=== PATIENT | female | born 1935 | race Caucasian/White ===

== ENCOUNTER 2016-08-19 11:48 | Inpatient (IN) | payer MEDICARE, BC, MEDICAID ==
[2016-08-19] MEDS ORDERED: ALBUTEROL NEB SOL 2.5MG/3ML 1 VIAL SOL NEB PRN (16:33)
[2016-08-19] MEDS ORDERED: WARFARIN SODIUM 2.5 MG TAB PO SCH (18:00)
[2016-08-19] MEDS ORDERED: [UNRECOGNIZED DRUG - OTHER] PO PRN (20:08)
[2016-08-19] MEDS ORDERED: SIMETHICONE 40 MG/0.6 ML SUS PO PRN (20:08)
[2016-08-19] MEDS ORDERED: ONDANSETRON HCL 4 MG TAB PO PRN (20:08)
[2016-08-19] MEDS ORDERED: ACETAMINOPHEN 325 MG PO PRN (20:08)
[2016-08-19] MEDS ORDERED: ATORVASTATIN 10 MG TAB PO SCH (21:00)
[2016-08-19] MEDS: METOPROLOL TARTRATE 25 MG TAB PO SCH (21:12)
[2016-08-20] MEDS: MULTIVITAMIN2 1 EA TAB PO SCH ×2 (02:14→20:46)
[2016-08-20] MEDS: DIGOXIN 0.125 MG TAB PO SCH (05:48)
[2016-08-20] MEDS ORDERED: [UNRECOGNIZED DRUG - OTHER] PO SCH (09:00)
[2016-08-20] MEDS ORDERED: ATORVASTATIN 10 MG TAB PO SCH (09:00)
[2016-08-20] MEDS ORDERED: LISINOPRIL 5 MG TAB PO SCH (09:00)
[2016-08-20] MEDS ORDERED: FAMOTIDINE 20 MG TAB PO SCH (09:00)
[2016-08-20] MEDS: LISINOPRIL 20 MG TAB PO SCH (10:05)
[2016-08-20] MEDS: METOPROLOL TARTRATE 25 MG TAB PO SCH ×2 (10:05→20:46)
[2016-08-20] MEDS: FAMOTIDINE 20 MG TAB PO SCH ×2 (10:06→20:46)
[2016-08-20] MEDS: WARFARIN SODIUM 2.5 MG TAB PO SCH (18:29)
[2016-08-20] MEDS: ATORVASTATIN 10 MG TAB PO SCH (20:45)
[2016-08-20] MEDS: [UNRECOGNIZED DRUG - OTHER] PO SCH (20:46)
[2016-08-20] MEDS ORDERED: [UNRECOGNIZED DRUG - OTHER] PO SCH (21:00)
[2016-08-21] MEDS: DIGOXIN 0.125 MG TAB PO SCH (05:48)
[2016-08-21] MEDS: LISINOPRIL 20 MG TAB PO SCH (08:46)
[2016-08-21] MEDS: METOPROLOL TARTRATE 25 MG TAB PO SCH ×2 (08:47→20:34)
[2016-08-21] MEDS: FAMOTIDINE 20 MG TAB PO SCH ×2 (08:48→17:29)
[2016-08-21] MEDS: WARFARIN SODIUM 2.5 MG TAB PO SCH (17:29)
[2016-08-21] MEDS: MULTIVITAMIN2 1 EA TAB PO SCH ×2 (17:29→20:34)
[2016-08-21] MEDS: ATORVASTATIN 10 MG TAB PO SCH (20:33)
[2016-08-21] MEDS: [UNRECOGNIZED DRUG - OTHER] PO SCH (20:35)
[2016-08-22] MEDS: DIGOXIN 0.125 MG TAB PO SCH (04:23)
[2016-08-22] MEDS: MOI STIR PO PRN (05:30)
[2016-08-22] MEDS: FAMOTIDINE 20 MG TAB PO SCH ×2 (06:31→17:34)
[2016-08-22] MEDS: METOPROLOL TARTRATE 25 MG TAB PO SCH ×2 (08:38→21:01)
[2016-08-22] MEDS: LISINOPRIL 20 MG TAB PO SCH (08:40)
[2016-08-22] MEDS ORDERED: ONDANSETRON HCL 4 MG TAB PO PRN (11:01)
[2016-08-22] MEDS: WARFARIN SODIUM 2.5 MG TAB PO SCH (17:39)
[2016-08-22] MEDS: ATORVASTATIN 10 MG TAB PO SCH (21:01)
[2016-08-22] MEDS: [UNRECOGNIZED DRUG - OTHER] PO SCH (21:02)
[2016-08-22] MEDS: MULTIVITAMIN2 1 EA TAB PO SCH (21:02)
[2016-08-23] MEDS: DIGOXIN 0.125 MG TAB PO SCH (05:07)
[2016-08-23] MEDS: FAMOTIDINE 20 MG TAB PO SCH ×2 (06:24→17:45)
[2016-08-23] MEDS: LISINOPRIL 20 MG TAB PO SCH (08:33)
[2016-08-23] MEDS: METOPROLOL TARTRATE 25 MG TAB PO SCH ×2 (08:33→20:59)
[2016-08-23] MEDS ORDERED: WARFARIN SODIUM 1 MG TAB PO ONE (18:00)
[2016-08-23] MEDS ORDERED: WARFARIN SODIUM 3 MG TAB PO ONE (18:00)
[2016-08-23] MEDS ORDERED: WARFARIN SODIUM 3 MG TAB PO SCH (18:00)
[2016-08-23] MEDS: ATORVASTATIN 10 MG TAB PO SCH (20:59)
[2016-08-23] MEDS: MULTIVITAMIN2 1 EA TAB PO SCH (21:00)
[2016-08-23] MEDS: [UNRECOGNIZED DRUG - OTHER] PO SCH (21:00)
[2016-08-23] MEDS ORDERED: HYDRALAZINE HYDROCHLORIDE 10 MG TAB PO ONE (23:00)
[2016-08-24] MEDS: DIGOXIN 0.125 MG TAB PO SCH (06:00)
[2016-08-24] MEDS: FAMOTIDINE 20 MG TAB PO SCH ×2 (06:01→17:47)
[2016-08-24] MEDS: LISINOPRIL 20 MG TAB PO SCH (08:21)
[2016-08-24] MEDS: METOPROLOL TARTRATE 25 MG TAB PO SCH ×2 (08:21→20:38)
[2016-08-24] MEDS: AMLODIPINE 5 MG TAB PO SCH (08:22)
[2016-08-24] MEDS: WARFARIN SODIUM 2.5 MG TAB PO SCH (17:47)
[2016-08-24] MEDS: ATORVASTATIN 10 MG TAB PO SCH (20:38)
[2016-08-24] MEDS: [UNRECOGNIZED DRUG - OTHER] PO SCH (20:38)
[2016-08-24] MEDS: MULTIVITAMIN2 1 EA TAB PO SCH (20:39)
[2016-08-25] MEDS: DIGOXIN 0.125 MG TAB PO SCH (05:41)
[2016-08-25] MEDS: FAMOTIDINE 20 MG TAB PO SCH ×2 (06:19→17:42)
[2016-08-25] MEDS: METOPROLOL TARTRATE 25 MG TAB PO SCH ×2 (08:31→20:36)
[2016-08-25] MEDS: LISINOPRIL 20 MG TAB PO SCH (08:32)
[2016-08-25] MEDS: AMLODIPINE 5 MG TAB PO SCH (08:33)
[2016-08-25] MEDS: WARFARIN SODIUM 2.5 MG TAB PO SCH (17:42)
[2016-08-25] MEDS: ATORVASTATIN 10 MG TAB PO SCH (20:36)
[2016-08-25] MEDS: [UNRECOGNIZED DRUG - OTHER] PO SCH (20:37)
[2016-08-25] MEDS: MULTIVITAMIN2 1 EA TAB PO SCH (20:38)
[2016-08-26] MEDS: FAMOTIDINE 20 MG TAB PO SCH ×2 (06:38→17:38)
[2016-08-26] MEDS: AMLODIPINE 5 MG TAB PO SCH (08:55)
[2016-08-26] MEDS: LISINOPRIL 20 MG TAB PO SCH (08:55)
[2016-08-26] MEDS: METOPROLOL TARTRATE 25 MG TAB PO SCH ×2 (08:55→20:56)
[2016-08-26] MEDS: WARFARIN SODIUM 2.5 MG TAB PO SCH (17:38)
[2016-08-26] MEDS: ATORVASTATIN 10 MG TAB PO SCH (20:56)
[2016-08-26] MEDS: MULTIVITAMIN2 1 EA TAB PO SCH (20:57)
[2016-08-26] MEDS: MOI STIR PO PRN (20:57)
[2016-08-26] MEDS: [UNRECOGNIZED DRUG - OTHER] PO SCH (21:00)
[2016-08-27] MEDS: FAMOTIDINE 20 MG TAB PO SCH ×2 (07:20→17:40)
[2016-08-27] MEDS: METOPROLOL TARTRATE 25 MG TAB PO SCH ×2 (08:14→20:46)
[2016-08-27] MEDS: AMLODIPINE 5 MG TAB PO SCH (08:14)
[2016-08-27] MEDS: LISINOPRIL 20 MG TAB PO SCH (08:14)
[2016-08-27] MEDS: WARFARIN SODIUM 2.5 MG TAB PO SCH (17:40)
[2016-08-27] MEDS: MOI STIR PO PRN (20:45)
[2016-08-27] MEDS: ATORVASTATIN 10 MG TAB PO SCH (20:45)
[2016-08-27] MEDS: [UNRECOGNIZED DRUG - OTHER] PO SCH (20:46)
[2016-08-27] MEDS: MULTIVITAMIN2 1 EA TAB PO SCH (20:46)
[2016-08-28] MEDS: MOI STIR PO PRN (02:32)
[2016-08-28] MEDS: FAMOTIDINE 20 MG TAB PO SCH ×2 (06:45→17:32)
[2016-08-28 07:22] LABS: CALCIUM 8.4 mg/dl (8.5-10.1); POTASSIUM 4.3 mMol/L (3.5-5.1)
[2016-08-28] MEDS: METOPROLOL TARTRATE 25 MG TAB PO SCH ×2 (08:03→21:14)
[2016-08-28] MEDS: LISINOPRIL 20 MG TAB PO SCH (08:03)
[2016-08-28] MEDS: AMLODIPINE 5 MG TAB PO SCH (08:04)
[2016-08-28] MEDS: WARFARIN SODIUM 2.5 MG TAB PO SCH (17:32)
[2016-08-28] MEDS: ATORVASTATIN 10 MG TAB PO SCH (21:14)
[2016-08-28] MEDS: [UNRECOGNIZED DRUG - OTHER] PO SCH (21:15)
[2016-08-28] MEDS: MULTIVITAMIN2 1 EA TAB PO SCH (21:16)
[2016-08-29] MEDS: ACETAMINOPHEN 325 MG PO PRN (01:43)
[2016-08-29] MEDS: FAMOTIDINE 20 MG TAB PO SCH ×2 (07:18→18:13)
[2016-08-29] MEDS: LISINOPRIL 20 MG TAB PO SCH (08:36)
[2016-08-29] MEDS: METOPROLOL TARTRATE 25 MG TAB PO SCH ×2 (08:36→22:13)
[2016-08-29] MEDS: AMLODIPINE 5 MG TAB PO SCH (08:37)
[2016-08-29] MEDS: WARFARIN SODIUM 2.5 MG TAB PO SCH (18:14)
[2016-08-29] MEDS: ATORVASTATIN 10 MG TAB PO SCH (22:13)
[2016-08-29] MEDS: MULTIVITAMIN2 1 EA TAB PO SCH (22:14)
[2016-08-29] MEDS: [UNRECOGNIZED DRUG - OTHER] PO SCH (22:14)
[2016-08-30] MEDS: FAMOTIDINE 20 MG TAB PO SCH ×2 (07:15→17:18)
[2016-08-30] MEDS: AMLODIPINE 5 MG TAB PO SCH (08:29)
[2016-08-30] MEDS: METOPROLOL TARTRATE 25 MG TAB PO SCH ×2 (08:29→20:47)
[2016-08-30] MEDS: LISINOPRIL 20 MG TAB PO SCH (08:30)
[2016-08-30] MEDS: WARFARIN SODIUM 2.5 MG TAB PO SCH (18:02)
[2016-08-30] MEDS: [UNRECOGNIZED DRUG - OTHER] PO SCH (20:47)
[2016-08-30] MEDS: ATORVASTATIN 10 MG TAB PO SCH (20:49)
[2016-08-30] MEDS: MULTIVITAMIN2 1 EA TAB PO SCH (20:49)
[2016-08-31] MEDS: FAMOTIDINE 20 MG TAB PO SCH ×2 (06:11→16:51)
[2016-08-31] MEDS: ACETAMINOPHEN 325 MG PO PRN (06:11)
[2016-08-31] MEDS: LISINOPRIL 20 MG TAB PO SCH (09:40)
[2016-08-31] MEDS: METOPROLOL TARTRATE 25 MG TAB PO SCH ×2 (09:40→21:39)
[2016-08-31] MEDS: AMLODIPINE 5 MG TAB PO SCH (09:40)
[2016-08-31] MEDS: WARFARIN SODIUM 2.5 MG TAB PO SCH (18:47)
[2016-08-31] MEDS: ATORVASTATIN 10 MG TAB PO SCH (21:39)
[2016-08-31] MEDS: [UNRECOGNIZED DRUG - OTHER] PO SCH (21:41)
[2016-08-31] MEDS: MULTIVITAMIN2 1 EA TAB PO SCH (21:42)
[2016-09-01] MEDS: FAMOTIDINE 20 MG TAB PO SCH ×2 (06:19→17:15)
[2016-09-01] MEDS: LISINOPRIL 20 MG TAB PO SCH (08:06)
[2016-09-01] MEDS: METOPROLOL TARTRATE 25 MG TAB PO SCH ×2 (08:06→20:16)
[2016-09-01] MEDS: AMLODIPINE 5 MG TAB PO SCH (08:06)
[2016-09-01] MEDS: WARFARIN SODIUM 2.5 MG TAB PO SCH (17:16)
[2016-09-01] MEDS: [UNRECOGNIZED DRUG - OTHER] PO SCH (20:16)
[2016-09-01] MEDS: ATORVASTATIN 10 MG TAB PO SCH (20:16)
[2016-09-01] MEDS: MULTIVITAMIN2 1 EA TAB PO SCH (20:17)
[2016-09-02] MEDS: FAMOTIDINE 20 MG TAB PO SCH ×2 (06:34→17:39)
[2016-09-02] MEDS: METOPROLOL TARTRATE 25 MG TAB PO SCH ×2 (10:23→20:19)
[2016-09-02] MEDS: AMLODIPINE 5 MG TAB PO SCH (10:23)
[2016-09-02] MEDS: LISINOPRIL 20 MG TAB PO SCH (10:23)
[2016-09-02] MEDS: WARFARIN SODIUM 2.5 MG TAB PO SCH (17:40)
[2016-09-02] MEDS: [UNRECOGNIZED DRUG - OTHER] PO SCH (20:17)
[2016-09-02] MEDS: ATORVASTATIN 10 MG TAB PO SCH (20:20)
[2016-09-02] MEDS: MULTIVITAMIN2 1 EA TAB PO SCH (20:20)
[2016-09-03] MEDS: ACETAMINOPHEN 325 MG PO PRN (01:39)
[2016-09-03] MEDS: FAMOTIDINE 20 MG TAB PO SCH ×2 (06:26→17:39)
[2016-09-03] MEDS: METOPROLOL TARTRATE 25 MG TAB PO SCH ×2 (08:23→21:08)
[2016-09-03] MEDS: AMLODIPINE 5 MG TAB PO SCH (08:23)
[2016-09-03] MEDS: LISINOPRIL 20 MG TAB PO SCH (08:23)
[2016-09-03] MEDS: WARFARIN SODIUM 2.5 MG TAB PO SCH (17:39)
[2016-09-03] MEDS: MULTIVITAMIN2 1 EA TAB PO SCH (21:08)
[2016-09-03] MEDS: [UNRECOGNIZED DRUG - OTHER] PO SCH (21:09)
[2016-09-03] MEDS: ATORVASTATIN 10 MG TAB PO SCH (21:09)
[2016-09-03] MEDS: MOI STIR PO PRN (23:00)
[2016-09-04] MEDS: FAMOTIDINE 20 MG TAB PO SCH ×2 (06:38→17:04)
[2016-09-04] MEDS: METOPROLOL TARTRATE 25 MG TAB PO SCH ×2 (08:12→20:50)
[2016-09-04] MEDS: LISINOPRIL 20 MG TAB PO SCH (08:14)
[2016-09-04] MEDS: AMLODIPINE 5 MG TAB PO SCH (08:14)
[2016-09-04] MEDS: WARFARIN SODIUM 2.5 MG TAB PO SCH (17:02)
[2016-09-04] MEDS: [UNRECOGNIZED DRUG - OTHER] PO SCH (20:50)
[2016-09-04] MEDS: MULTIVITAMIN2 1 EA TAB PO SCH (20:51)
[2016-09-04] MEDS: ATORVASTATIN 10 MG TAB PO SCH (20:52)
[2016-09-05] MEDS: ACETAMINOPHEN 325 MG PO PRN (02:19)
[2016-09-05] MEDS: FAMOTIDINE 20 MG TAB PO SCH ×2 (06:38→18:10)
[2016-09-05] MEDS: METOPROLOL TARTRATE 25 MG TAB PO SCH ×2 (09:51→20:43)
[2016-09-05] MEDS: AMLODIPINE 5 MG TAB PO SCH (09:51)
[2016-09-05] MEDS: LISINOPRIL 20 MG TAB PO SCH (09:52)
[2016-09-05] MEDS ORDERED: WARFARIN SODIUM 5 MG TAB PO ONE (18:00)
[2016-09-05] MEDS: ATORVASTATIN 10 MG TAB PO SCH (20:43)
[2016-09-05] MEDS: MULTIVITAMIN2 1 EA TAB PO SCH (20:43)
[2016-09-05] MEDS: [UNRECOGNIZED DRUG - OTHER] PO SCH (20:43)
[2016-09-06] MEDS: FAMOTIDINE 20 MG TAB PO SCH ×2 (06:45→19:34)
[2016-09-06] MEDS: METOPROLOL TARTRATE 25 MG TAB PO SCH ×2 (09:12→20:15)
[2016-09-06] MEDS: AMLODIPINE 5 MG TAB PO SCH (09:13)
[2016-09-06] MEDS: LISINOPRIL 20 MG TAB PO SCH (09:13)
[2016-09-06] MEDS: WARFARIN SODIUM 2.5 MG TAB PO SCH (19:35)
[2016-09-06] MEDS: ATORVASTATIN 10 MG TAB PO SCH (20:14)
[2016-09-06] MEDS: MULTIVITAMIN2 1 EA TAB PO SCH (20:15)
[2016-09-06] MEDS: [UNRECOGNIZED DRUG - OTHER] PO SCH (20:15)
[2016-09-07] MEDS: FAMOTIDINE 20 MG TAB PO SCH ×2 (06:29→18:25)
[2016-09-07] MEDS: METOPROLOL TARTRATE 25 MG TAB PO SCH ×2 (08:55→20:02)
[2016-09-07] MEDS: AMLODIPINE 5 MG TAB PO SCH (08:56)
[2016-09-07] MEDS: LISINOPRIL 20 MG TAB PO SCH (08:56)
[2016-09-07] MEDS: WARFARIN SODIUM 2.5 MG TAB PO SCH (18:25)
[2016-09-07] MEDS: MULTIVITAMIN2 1 EA TAB PO SCH (20:02)
[2016-09-07] MEDS: ATORVASTATIN 10 MG TAB PO SCH (20:02)
[2016-09-07] MEDS: [UNRECOGNIZED DRUG - OTHER] PO SCH (20:02)
[2016-09-08] MEDS: FAMOTIDINE 20 MG TAB PO SCH ×2 (06:43→17:19)
[2016-09-08] MEDS: METOPROLOL TARTRATE 25 MG TAB PO SCH ×2 (08:24→20:30)
[2016-09-08] MEDS: AMLODIPINE 5 MG TAB PO SCH (08:24)
[2016-09-08] MEDS: LISINOPRIL 20 MG TAB PO SCH (08:24)
[2016-09-08] MEDS: WARFARIN SODIUM 2.5 MG TAB PO SCH (17:22)
[2016-09-08] MEDS ORDERED: WARFARIN SODIUM 3 MG TAB PO SCH (18:00)
[2016-09-08] MEDS: MULTIVITAMIN2 1 EA TAB PO SCH (20:30)
[2016-09-08] MEDS: ATORVASTATIN 10 MG TAB PO SCH (20:31)
[2016-09-08] MEDS: MOI STIR PO PRN (20:32)
[2016-09-08] MEDS: [UNRECOGNIZED DRUG - OTHER] PO SCH (20:32)
[2016-09-09] MEDS: FAMOTIDINE 20 MG TAB PO SCH ×2 (06:33→17:15)
[2016-09-09] MEDS: METOPROLOL TARTRATE 25 MG TAB PO SCH ×2 (08:30→20:36)
[2016-09-09] MEDS: AMLODIPINE 5 MG TAB PO SCH (08:32)
[2016-09-09] MEDS: LISINOPRIL 20 MG TAB PO SCH (08:32)
[2016-09-09] MEDS: WARFARIN SODIUM 2.5 MG TAB PO SCH (17:15)
[2016-09-09] MEDS: [UNRECOGNIZED DRUG - OTHER] PO SCH (20:32)
[2016-09-09] MEDS: ATORVASTATIN 10 MG TAB PO SCH (20:33)
[2016-09-09] MEDS: MULTIVITAMIN2 1 EA TAB PO SCH (20:33)
[2016-09-10] MEDS: ACETAMINOPHEN 325 MG PO PRN (05:10)
[2016-09-10] MEDS: FAMOTIDINE 20 MG TAB PO SCH ×2 (06:46→17:59)
[2016-09-10] MEDS: LISINOPRIL 20 MG TAB PO SCH (08:14)
[2016-09-10] MEDS: AMLODIPINE 5 MG TAB PO SCH (08:14)
[2016-09-10] MEDS: METOPROLOL TARTRATE 25 MG TAB PO SCH ×2 (08:15→20:19)
[2016-09-10] MEDS: WARFARIN SODIUM 2.5 MG TAB PO SCH (17:59)
[2016-09-10] MEDS: ATORVASTATIN 10 MG TAB PO SCH (20:18)
[2016-09-10] MEDS: MULTIVITAMIN2 1 EA TAB PO SCH (20:18)
[2016-09-10] MEDS: ONDANSETRON HCL 4 MG TAB PO PRN (20:18)
[2016-09-10] MEDS: [UNRECOGNIZED DRUG - OTHER] PO SCH (20:20)
[2016-09-11] MEDS: FAMOTIDINE 20 MG TAB PO SCH ×2 (06:05→17:46)
[2016-09-11] MEDS ORDERED: PROCHLORPERAZINE 25 MG PR PRN (07:36)
[2016-09-11] MEDS: METOPROLOL TARTRATE 25 MG TAB PO SCH ×2 (08:35→20:55)
[2016-09-11] MEDS: LISINOPRIL 20 MG TAB PO SCH (08:37)
[2016-09-11] MEDS: AMLODIPINE 5 MG TAB PO SCH (08:37)
[2016-09-11] MEDS: ONDANSETRON HCL 4 MG TAB PO PRN (09:57)
[2016-09-11] MEDS ORDERED: BISACODYL 5 MG TAB ECT PO PRN (16:25)
[2016-09-11] MEDS: WARFARIN SODIUM 2.5 MG TAB PO SCH (17:46)
[2016-09-11] MEDS: [UNRECOGNIZED DRUG - OTHER] PO SCH (20:54)
[2016-09-11] MEDS: ATORVASTATIN 10 MG TAB PO SCH (20:55)
[2016-09-11] MEDS: MULTIVITAMIN2 1 EA TAB PO SCH (20:56)
[2016-09-12] MEDS: FAMOTIDINE 20 MG TAB PO SCH ×2 (07:09→17:39)
[2016-09-12] MEDS: METOPROLOL TARTRATE 25 MG TAB PO SCH ×2 (09:55→21:05)
[2016-09-12] MEDS: LISINOPRIL 20 MG TAB PO SCH (09:56)
[2016-09-12] MEDS: AMLODIPINE 5 MG TAB PO SCH (09:56)
[2016-09-12] MEDS ORDERED: WARFARIN SODIUM 5 MG TAB PO SCH (18:00)
[2016-09-12] MEDS: [UNRECOGNIZED DRUG - OTHER] PO SCH ×2 (21:00→21:05)
[2016-09-12] MEDS: ATORVASTATIN 10 MG TAB PO SCH (21:06)
[2016-09-12] MEDS: MULTIVITAMIN2 1 EA TAB PO SCH (21:06)
[2016-09-13] MEDS: FAMOTIDINE 20 MG TAB PO SCH ×2 (06:38→17:38)
[2016-09-13] MEDS: AMLODIPINE 5 MG TAB PO SCH (09:07)
[2016-09-13] MEDS: METOPROLOL TARTRATE 25 MG TAB PO SCH ×2 (09:07→20:25)
[2016-09-13] MEDS: LISINOPRIL 20 MG TAB PO SCH (09:08)
[2016-09-13] MEDS: WARFARIN SODIUM 2.5 MG TAB PO SCH (17:38)
[2016-09-13] MEDS: MULTIVITAMIN2 1 EA TAB PO SCH (20:24)
[2016-09-13] MEDS: ATORVASTATIN 10 MG TAB PO SCH (20:24)
[2016-09-13] MEDS: [UNRECOGNIZED DRUG - OTHER] PO SCH (20:26)
[2016-09-14] MEDS: ACETAMINOPHEN 325 MG PO PRN (05:59)
[2016-09-14] MEDS: FAMOTIDINE 20 MG TAB PO SCH ×2 (06:32→17:36)
[2016-09-14] MEDS: METOPROLOL TARTRATE 25 MG TAB PO SCH ×2 (08:27→20:12)
[2016-09-14] MEDS: LISINOPRIL 20 MG TAB PO SCH (08:28)
[2016-09-14] MEDS: AMLODIPINE 5 MG TAB PO SCH (08:29)
[2016-09-14] MEDS: WARFARIN SODIUM 2.5 MG TAB PO SCH (17:35)
[2016-09-14] MEDS: MULTIVITAMIN2 1 EA TAB PO SCH (20:12)
[2016-09-14] MEDS: ATORVASTATIN 10 MG TAB PO SCH (20:13)
[2016-09-14] MEDS: [UNRECOGNIZED DRUG - OTHER] PO SCH (20:13)
[2016-09-15] MEDS: FAMOTIDINE 20 MG TAB PO SCH ×2 (06:37→17:59)
[2016-09-15] MEDS: AMLODIPINE 5 MG TAB PO SCH (08:13)
[2016-09-15] MEDS: METOPROLOL TARTRATE 25 MG TAB PO SCH ×2 (08:13→20:43)
[2016-09-15] MEDS: LISINOPRIL 20 MG TAB PO SCH (08:14)
[2016-09-15] MEDS: WARFARIN SODIUM 2.5 MG TAB PO SCH (17:59)
[2016-09-15] MEDS: ATORVASTATIN 10 MG TAB PO SCH (20:43)
[2016-09-15] MEDS: MULTIVITAMIN2 1 EA TAB PO SCH (20:44)
[2016-09-15] MEDS: [UNRECOGNIZED DRUG - OTHER] PO SCH (20:44)
[2016-09-16] MEDS: FAMOTIDINE 20 MG TAB PO SCH ×2 (06:59→17:13)
[2016-09-16] MEDS: METOPROLOL TARTRATE 25 MG TAB PO SCH ×2 (09:10→20:47)
[2016-09-16] MEDS: LISINOPRIL 20 MG TAB PO SCH (09:11)
[2016-09-16] MEDS: AMLODIPINE 5 MG TAB PO SCH (09:12)
[2016-09-16] MEDS: WARFARIN SODIUM 2.5 MG TAB PO SCH (17:13)
[2016-09-16] MEDS: MULTIVITAMIN2 1 EA TAB PO SCH (20:47)
[2016-09-16] MEDS: ATORVASTATIN 10 MG TAB PO SCH (20:48)
[2016-09-16] MEDS: [UNRECOGNIZED DRUG - OTHER] PO SCH (21:13)
[2016-09-17] MEDS: FAMOTIDINE 20 MG TAB PO SCH ×2 (06:24→17:24)
[2016-09-17] MEDS: METOPROLOL TARTRATE 25 MG TAB PO SCH ×2 (08:34→20:10)
[2016-09-17] MEDS: AMLODIPINE 5 MG TAB PO SCH (08:36)
[2016-09-17] MEDS: LISINOPRIL 20 MG TAB PO SCH (08:36)
[2016-09-17 12:54] VITALS: PULSE 74
[2016-09-17] MEDS: WARFARIN SODIUM 2.5 MG TAB PO SCH (17:24)
[2016-09-17] MEDS: ATORVASTATIN 10 MG TAB PO SCH (20:10)
[2016-09-17] MEDS: [UNRECOGNIZED DRUG - OTHER] PO SCH (20:11)
[2016-09-17] MEDS: MULTIVITAMIN2 1 EA TAB PO SCH (20:11)
[2016-09-18] MEDS: FAMOTIDINE 20 MG TAB PO SCH (06:51)
[2016-09-18] MEDS: AMLODIPINE 5 MG TAB PO SCH (08:37)
[2016-09-18] MEDS: LISINOPRIL 20 MG TAB PO SCH (08:37)
[2016-09-18] MEDS: METOPROLOL TARTRATE 25 MG TAB PO SCH (08:38)
[2016-09-18 11:37] VITALS: BP 120/60; RESP 18; TEMP 98; O2SAT 98
[2016-09-19] MEDS ORDERED: WARFARIN SODIUM 5 MG TAB PO SCH (18:00)
== END 2016-09-18 13:30 | DRG 206 ==
LOC: ACUTE CARE 16:12
PROVIDERS: ADMIT Family Medicine; ATTEND Family Medicine
PROC: 5A09357 Assistance with Respiratory Ventilation, Less than 24 Consecutive Hours, Continuous Positive Airway Pressure (ICD-10-PCS; principal; 2016-08-19)
PROC: F02Z1ZZ Dressing Assessment (ICD-10-PCS; 2016-08-20)
PROC: F02Z0ZZ Bathing/Showering Assessment (ICD-10-PCS; 2016-08-20)
PROC: F02Z3ZZ Grooming/Personal Hygiene Assessment (ICD-10-PCS; 2016-08-20)
PROC: F01ZDFZ Gait and/or Balance Assessment using Assistive, Adaptive, Supportive or Protective Equipment (ICD-10-PCS; 2016-08-20)
PROC: F01ZBZZ Bed Mobility Assessment (ICD-10-PCS; 2016-08-20)
DX: J98.6 Disorders of diaphragm (principal); I48.91 Unspecified atrial fibrillation; R06.00 Dyspnea, unspecified; E11.9 Type 2 diabetes mellitus without complications; R11.0 Nausea; Z98.890 Other specified postprocedural states; Z79.01 Long term (current) use of anticoagulants; R53.1 Weakness
CPT/HCPCS: 36415; 80048; 82962; 85610; 94010; 94150; 94660; 94760; J7603; A6232

== ENCOUNTER 2016-10-24 14:09 | Emergency (ER) | payer MEDICARE, BC, MEDICAID ==
[2016-10-24 14:19] VITALS: RESP 18; TEMP 97.9
[2016-10-24] MEDS ORDERED: ONDANSETRON HCL 4 MG/2 ML SOL IV ONE ×2 (14:19→15:17)
[2016-10-24] MEDS ORDERED: GLUCAGON HYDROCHLORIDE 1 MG PDS IV ONE (14:19)
[2016-10-24] MEDS ORDERED: NITROGLYCERIN 0.4 MG TAB SL PRN (14:19)
[2016-10-24] MEDS ORDERED: NITROGLYCERIN 0.4 MG TAB SL ONE (14:24)
[2016-10-24] MEDS ORDERED: GLUCAGON HYDROCHLORIDE 1 MG PDS ONE (14:24)
[2016-10-24] MEDS ORDERED: ONDANSETRON HCL 4 MG/2 ML SOL ONE ×2 (14:24→15:25)
[2016-10-24] MEDS: SODIUM CHLORIDE 0.9% FLUSH 10 ML SOL IV PRN ×3 (14:30→15:56)
[2016-10-24] MEDS ORDERED: PROMETHAZINE HYDROCHLORIDE 25 MG/ML SOL IV ONE (15:50)
[2016-10-24] MEDS ORDERED: PROMETHAZINE HYDROCHLORIDE 25 MG/ML SOL ONE (15:56)
[2016-10-24 17:34] VITALS: BP 158/80; PULSE 102; O2SAT 100
== END 2016-10-24 16:55 | DRG 395 ==
LOC: ED 14:09
DX: T18.128A Food in esophagus causing other injury, initial encounter (principal)
CPT/HCPCS: 99285; J1610; J2405; J2550